=== PATIENT | male | born 1930 ===

== ENCOUNTER 2018-03-12 18:41 | Emergency (ER) | payer MEDICARE, OTHER ==
[2018-03-12] MEDS ORDERED: ATR80PT PO (18:48)
[2018-03-12] MEDS ORDERED: ASPI-1471 PO (18:48)
[2018-03-12] MEDS ORDERED: CAR6.25 PO (18:48)
[2018-03-12] MEDS ORDERED: SAW160CA26 PO (18:49)
--- NOTE | 2018-03-12 18:56 | ER Report ---
History and Physical Time Seen By MD: 18:43 HPI/ROS CHIEF COMPLAINT: Dyspnea, dyspnea on exertion HISTORY OF PRESENT ILLNESS: 87-year-old male from [place]. 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 He flew into [place] and came immediately to [facility] by car. Yesterday he was having some shortness of breath during the judging competition was evaluated by the paramedics at the show, placed him on oxygen, which improved his symptoms. Patient's past medical history significant for CABG, pacemaker, cardiac arrest. Patient's currently on chemotherapy. He has thrombocytopenia. Patient notes no fever or productive cough. Patient's had no chest pain. He thinks he is experiencing altitude sickness. He however denies headache or nausea or vomiting. REVIEW OF SYSTEMS: Respiratory: As above Cardiovascular: No chest pain, no palpitations. Gastrointestinal: No vomiting, no abdominal pain. Musculoskeletal: No back pain. Allergies: Coded Allergies: No Known Drug Allergies (Unverified , 03/12/18) Home Meds Reported Medications [place] (SAW PALMETTO) 160 Mg Capsule, 160 MG PO BID, CAPSULE 03/12/18 Aspirin (ASPIR 81) 81 Mg Tablet.dr, 81 MG PO QDAY, TAB 03/12/18 Atorvastatin (LIPITOR) 80 Mg Tab, 1 TAB PO QDAY, TAB 03/12/18 Carvedilol (CARVEDILOL) 6.25 Mg Tab, 6.25 MG PO BID, TAB 03/12/18 Reviewed Nurses Notes: Yes Old Medical Records Reviewed: Yes Constitutional Vital Sign - Last 24 Hours 03/12/18 03/12/18 03/12/18 03/12/18 18:46 18:50 18:56 19:00 Temp 98.0 Pulse 71 67 Resp 18 31 B/P (MAP) 156/106 (123) 156/106 147/73 (97) Pulse Ox 90 90 O2 Delivery Room Air 03/12/18 03/12/18 03/12/18 03/12/18 19:11 19:26 19:30 19:35 Pulse 68 67 70 Resp 34 30 B/P (MAP) 122/68 (86) Pulse Ox 89 88 94 03/12/18 03/12/18 03/12/18 03/12/18 19:50 19:55 20:25 20:30 Pulse 72 69 69 B/P (MAP) 141/82 (101) Pulse Ox 91 93 92 03/12/18 03/12/18 03/12/18 03/12/18 20:40 20:45 20:50 20:55 Pulse 68 72 73 Pulse Ox 86 88 90 89 03/12/18 03/12/18 03/12/18 03/12/18 21:00 21:05 21:10 21:15 Pulse 71 84 75 72 B/P (MAP) 154/89 (110) Pulse Ox 88 91 88 89 03/12/18 03/12/18 03/12/18 21:20 23:00 23:10 Pulse 71 76 85 Resp 16 B/P (MAP) 136/86 (103) 138/88 (105) Pulse Ox 87 90 92 O2 Delivery Room Air Physical Exam General Appearance: The patient is alert, has no immediate need for airway protection and no current signs of toxicity. Vital signs stable, afebrile, room air pulse ox 90% occasionally dips to 88% HEENT: Pupils equal and round no injection. TMs normal, oropharynx without redness or exudate, mucous. Membranes are moist Respiratory: Chest is non tender, lungs are clear to auscultation. No wheezing or rails Cardiac: regular rate and rhythm, no murmur Gastrointestinal: Abdomen is soft and non tender, no masses, bowel sounds normal. Musculoskeletal: Neck: Neck is supple and non tender. Extremities have full range of motion and are non tender. Skin: No rashes or lesions. DIFFERENTIAL DIAGNOSIS: After history and physical exam differential diagnosis was considered for shortness of breath including but not limited to pulmonary infectious process, COPD, asthma, pulmonary embolus and congestive heart failure. Medical Decision Making Data Points Result Diagram: 03/12/18190803/12/181908 Laboratory Hematology Test 03/12/18 19:09 03/12/18 22:15 Red Blood Count 2.78 M/uL (4.00-5.60) Mean Corpuscular Volume 101.0 fL (80.0-96.0) Mean Corpuscular Hemoglobin 36.1 pg (26.0-33.0) Mean Corpuscular Hemoglobin Concent 35.8 g/dL (32.0-36.0) Red Cell Distribution Width 15.4 % (11.5-14.5) Mean Platelet Volume 8.6 fL (7.2-11.1) Neutrophils (%) (Auto) 60.0 % (39.4-72.5) Lymphocytes (%) (Auto) 26.3 % (17.6-49.6) Monocytes (%) (Auto) 11.2 % (4.1-12.4) Eosinophils (%) (Auto) 1.9 % (0.4-6.7) Basophils (%) (Auto) 0.6 % (0.3-1.4) Nucleated RBC Relative Count (auto) 0.1 /100WBC Neutrophils # (Auto) 2.2 K/uL (2.0-7.4) Lymphocytes # (Auto) 1.0 K/uL (1.3-3.6) Monocytes # (Auto) 0.4 K/uL (0.3-1.0) Eosinophils # (Auto) 0.1 K/uL (0.0-0.5) Basophils # (Auto) 0.0 K/uL (0.0-0.1) Nucleated RBC Absolute Count (auto) 0.00 K/uL Peripheral Blood Smear Yes Y/N D-Dimer Quantitative (PE/DVT) 2.01 ug/ml (0-0.50) Sodium Level 133 mmol/L (137-145) Potassium Level 4.6 mmol/L (3.5-5.0) Chloride Level 100 mmol/L (98-107) Carbon Dioxide Level 21 mmol/L (22-30) Blood Urea Nitrogen 31 mg/dl (9-21) Creatinine 1.20 mg/dl (0.66-1.25) Glomerular Filtration Rate Calc 57.5 Random Glucose 109 mg/dl (75-110) Calcium Level 10.2 mg/dl (8.4-10.2) Total Bilirubin 1.8 mg/dl (0.2-1.3) Aspartate Amino Transf (AST/SGOT) 48 U/L (0-35) Alanine Aminotransferase (ALT/SGPT) 51 U/L (0-56) Alkaline Phosphatase 96 U/L (0-126) B-Type Natriuretic Peptide 589 pg/ml (0-100) Total Protein 6.8 gm/dl (6.3-8.2) Albumin 4.1 g/dl (3.5-5.0) Troponin I 0.042 ng/ml Chemistry Test 03/12/18 19:09 03/12/18 22:15 White Blood Count 3.7 k/uL (4.5-11.0) Red Blood Count 2.78 M/uL (4.00-5.60) Hemoglobin 10.1 g/dL (14.0-18.0) Hematocrit 28.1 % (42.0-52.0) Mean Corpuscular Volume 101.0 fL (80.0-96.0) Mean Corpuscular Hemoglobin 36.1 pg (26.0-33.0) Mean Corpuscular Hemoglobin Concent 35.8 g/dL (32.0-36.0) Red Cell Distribution Width 15.4 % (11.5-14.5) Platelet Count 26 K/uL (150-450) Mean Platelet Volume 8.6 fL (7.2-11.1) Neutrophils (%) (Auto) 60.0 % (39.4-72.5) Lymphocytes (%) (Auto) 26.3 % (17.6-49.6) Monocytes (%) (Auto) 11.2 % (4.1-12.4) Eosinophils (%) (Auto) 1.9 % (0.4-6.7) Basophils (%) (Auto) 0.6 % (0.3-1.4) Nucleated RBC Relative Count (auto) 0.1 /100WBC Neutrophils # (Auto) 2.2 K/uL (2.0-7.4) Lymphocytes # (Auto) 1.0 K/uL (1.3-3.6) Monocytes # (Auto) 0.4 K/uL (0.3-1.0) Eosinophils # (Auto) 0.1 K/uL (0.0-0.5) Basophils # (Auto) 0.0 K/uL (0.0-0.1) Nucleated RBC Absolute Count (auto) 0.00 K/uL Peripheral Blood Smear Yes Y/N D-Dimer Quantitative (PE/DVT) 2.01 ug/ml (0-0.50) Glomerular Filtration Rate Calc 57.5 Calcium Level 10.2 mg/dl (8.4-10.2) Total Bilirubin 1.8 mg/dl (0.2-1.3) Aspartate Amino Transf (AST/SGOT) 48 U/L (0-35) Alanine Aminotransferase (ALT/SGPT) 51 U/L (0-56) Alkaline Phosphatase 96 U/L (0-126) B-Type Natriuretic Peptide 589 pg/ml (0-100) Total Protein 6.8 gm/dl (6.3-8.2) Albumin 4.1 g/dl (3.5-5.0) Troponin I 0.042 ng/ml Coagulation Test 03/12/18 19:09 D-Dimer Quantitative (PE/DVT) 2.01 ug/ml EKG/Imaging EKG Interpretation 12 lead EK Rhythm: normal sinus rhythm [place]: normal QRS: Old inferior Q waves,? Old anterior Q waves ST segments: Diffuse nonspecific ST and T-wave changes, lateral ST depression ?, No old EKGs for comparison Imaging X-ray: Single view portable chest x-ray was obtained. I viewed the images myself on the PACS system. My interpretation of the images is: No infiltrate, no effusion, normal mediastinum, intact pacemaker, median sternotomy wires consistent with CABG. The radiologist interpretation had no clinically significant variation from this interpretation. Results: CT scan of the CTA pulmonary angiogram was obtained. The results of the study are CTA CHEST WW/O CNTR (PULM ANG) HISTORY: Elevated d-dimer. Dyspnea. COMPARISON: Chest x-ray earlier same day. TECHNIQUE: Pulmonary embolus protocol - Thin-slice axial imaging of the chest was performed during maximal pulmonary arterial opacification with intravenous nonionic iodinated contrast. 3D coronal slab MIPs and 2D reconstructions in the coronal and sagittal planes were performed to aid in pulmonary embolus detection. Flexible Machining System Machinist images have been stored on PACS. One of the following dose optimization techniques was utilized in the performance of this exam: Automated exposure control; adjustment of the mA and/ or kV according to the patient's size; or use of an iterative reconstruction technique. Specific details can be referenced in the facility's radiology CT exam operational policy. CONTRAST: 75 mL of IV Isovue-370. FINDINGS: Pulmonary arteries: There is adequate opacification of the pulmonary arteries to the segmental branches. There are no filling defects in the visible pulmonary arteries. Pulmonary arteries are enlarged. Thoracic inlet: Normal. Aorta: The ascending aorta is enlarged, measuring 4.6 x 4.5 cm (sagittal image 157 series 7 and coronal image 106 series 6). There is mild to moderate atherosclerosis of the aorta. Heart / Pericardium: The heart is enlarged. There is artifact from pacemaker leads. There is no ventricular septal deviation. There is no pericardial effusion. There is severe coronary artery calcification. There are changes of coronary artery bypass grafting. Mediastinum / Joanne: Normal mediastinum. No lymphadenopathy. Lungs / Pleura: No pleural effusion. There is scarring at the apices. There is a left upper lobe groundglass opacity (image 36 series 5). No solid component. There is right upper lobe groundglass opacity (image 17 series 5). No solid component. There is 1.4 cm lobular opacity in the peripheral lingula (image 56) . There is a 2.3 cm lobular opacity at the periphery of the left lower lobe on image 55. There is a 4.0 cm lobular opacity at the peripheral right lower lobe on image 88, and there is a smaller irregular opacity anterior to it. There is mild dependent atelectasis. No pneumothorax. The airways are normal. Upper abdomen: There is reflux of contrast into the inferior vena cava. There are cysts of both kidneys. There is severe splenic artery calcification. There is a hepatic cyst in the left lobe of the liver (image 268 series 4), measuring 1.6 cm. Musculoskeletal/vertebra/body wall: There is bilateral gynecomastia. There are sternal closure wires. There are numerous Schmorl nodes. There is mild degenerative change of the spine. No listhesis. There are calcifications in the posterior paraspinal muscles that may be due to old injury. IMPRESSION: 1. No pulmonary embolism. Pulmonary arteries are enlarged, which is nonspecific , but can be seen with pulmonary artery hypertension. 2. Cardiomegaly. In addition, there is reflux of contrast into the inferior vena cava which suggests a degree of right heart failure. 3. Ascending aortic aneurysm measuring 4.6 x 4.5 cm. 4. Groundglass and solid pulmonary opacities. Potentially, this could be on an infectious basis. However, follow-up CT scan is recommended to reevaluate in 3 months as none of these lesions are well seen on chest x-ray. Per the ordering clinician, patient is visiting from out of town and is on chemotherapy for a known malignancy. Potentially, the pulmonary nodules could be metastatic disease. The study was read by the radiologist. I viewed the images myself on the PACS system. ED Course/Re-evaluation Clinical Indication for ER IV: Hydration, IV Access ED Course Patient was admitted to an examination room. H&P was done. Differential diagnosis was considered. Patient with shortness of breath at altitude. [place]. He's not been experiencing any symptoms of altitude sickness such as headache or nausea, vomiting. Patient's been having some dyspnea with exertion. He's had no chest pain. Patient has a history of coronary artery disease and a history of CABG. Patient has a pacemaker AICD in place. Patient had elevated d-dimer, a CT angiogram was performed which showed no evidence of pulmonary embolism. There were some other chronic thinks that were noted. Patient's elevated troponin was in the indeterminate area. Patient had a 3 hour troponin was repeated. The number was going down 0.042. Is still in the lower end of the indeterminate range. 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 He is advised not to exert himself. He is cautioned return to the ER for any chest pain. Patient advised to follow-up with his primary care physician upon returning home. Decision to Disposition Date: March 12, 2018 Decision to Disposition Time: 22:16 Depart Departure Latest Vital Signs Vital Signs Date Time Temp Pulse Resp B/P (MAP) Pulse Ox O2 Delivery O2 Flow Rate FiO2 03/12/18 23:10 85 16 138/88 (105) 92 Room Air 03/12/18 18:50 98.0 Impression: Primary Impression: Dyspnea on exertion Additional Impressions: History of coronary artery disease Thrombocytopenia Elevated troponin I measurement Condition: Improved Disposition: HOME OR SELF-CARE Patient Instructions: Dyspnea (ED) Additional Instructions: Use Benadryl or doxylamine to aid with sleep tonight Follow-up with your primary care doctor upon returning to [place] Avoid exerting yourself. Problem Qualifiers BIMAL SHRESTHA DO March 12, 2018 18:56
[2018-03-12 19:45] LABS: PLATELET COUNT, AUTOMATED 26 K/uL (150-450)
[2018-03-12] MEDS ORDERED: NS(*) 0.9% 1000 ML BAG 1,000 ML IV ONE (19:50)
--- NOTE | 2018-03-12 19:51 | EKG ---
[place] [facility] [place] NAME: BOBY SHAW : [id number] MR: [id number] V: [id number] EXAM DATE: ORDERING PHYSICIAN: BIMAL SHRESTHA TECHNOLOGIST: BRITTNEY Test Reason : DYSPNEA Blood Pressure : / mmHG Vent. Rate : 069 BPM Atrial Rate : 069 BPM P-R Int : 176 ms QRS Dur : 094 ms QT Int : 434 ms P-R-T Axes : 074 023 131 degrees QTc Int : 465 ms Sinus rhythm Possible left atrial enlargement Possible old inferior infarct Poor R wave progression through anterior leads ST changes in limb leads and lateral precordial leads may be ischemic in origin Abnormal ECG No previous ECGs available Confirmed by AMBER SNOWDEN ([id number]) on 03/13/2018 6:11:57 AM Referred By: Confirmed By:AMBER SNOWDEN
[2018-03-12] MEDS ORDERED: NS 0.9% 150 ML BAG 150 ML ONE (20:00)
[2018-03-12] MEDS ORDERED: IOPAMIDOL 76% 75 ML INFUS BTL 75 ML ONE (20:00)
--- NOTE | 2018-03-12 21:27 | RADIOLOGY IMAGING REPORT ---
FACILITY: [facility] PATIENT NAME: Clement Laura : 1930 MR: [id number] V: [id number] EXAM DATE: ORDERING PHYSICIAN: BIMAL SHRESTHA TECHNOLOGIST: Location: [facility] [place] Patient: Clement Laura : 1930 Visit/Account:[id number] Date of Sevice: 03/12/2018 CHEST SINGLE AP 03/12/2018 18:57 hours. HISTORY: Respiratory distress. COMPARISON: None. TECHNIQUE: Portable AP view of the chest. FINDINGS: Tubes/lines/hardware: ICD generator projects at the left lateral lower chest and one lead terminates in the right atrium and 2 leads terminate in the right ventricle. There are sternal closure wires. Th e inferior most is fractured. Pulmonary: There is symmetric apical scarring or thickening. There is no pneumothorax or pleural effu niranjan. Cardiomediastinal: The cardiac silhouette is enlarged, stable. The mediastinal silhouette is within n ormal limits. There is mild aortic calcification. Bones/soft tissues: No acute osseous abnormality. The visible abdomen is normal. IMPRESSION: 1. Cardiomegaly. 2. No acute pulmonary process. Report Dictated By: Rosa Crooks at 03/12/2018 9:21 PM Report E-Signed By: Rosa Crooks at 03/12/2018 9:22 PM WSN:[id number]
--- NOTE | 2018-03-12 21:46 | RADIOLOGY IMAGING REPORT ---
FACILITY: [facility] PATIENT NAME: Clement Laura : 1930 MR: [id number] V: [id number] EXAM DATE: ORDERING PHYSICIAN: BIMAL SHRESTHA TECHNOLOGIST: Location: [facility] [place] Patient: Clement Laura : 1930 Visit/Account:[id number] Date of Sevice: 03/12/2018 CTA CHEST WW/O CNTR (PULM ANG) HISTORY: Elevated d-dimer. Dyspnea. COMPARISON: Chest x-ray earlier same day. TECHNIQUE: Pulmonary embolus protocol - Thin-slice axial imaging of the chest was performed during ma ximal pulmonary arterial opacification with intravenous nonionic iodinated contrast. 3D coronal slab MIPs and 2D reconstructions in the coronal and sagittal planes were performed to aid in pulmonary emb olus detection. Spring Floor Service Worker images have been stored on PACS. One of the following dose optimization techniques was utilized in the performance of this exam: Autom ated exposure control; adjustment of the mA and/or kV according to the patient's size; or use of an i terative reconstruction technique. Specific details can be referenced in the facility's radiology CT exam operational policy. CONTRAST: 75 mL of IV Isovue-370. FINDINGS: Pulmonary arteries: There is adequate opacification of the pulmonary arteries to the segmental branch es. There are no filling defects in the visible pulmonary arteries. Pulmonary arteries are enlarged. Thoracic inlet: Normal. Aorta: The ascending aorta is enlarged, measuring 4.6 x 4.5 cm (sagittal image 157 series 7 and coron al image 106 series 6). There is mild to moderate atherosclerosis of the aorta. Heart / Pericardium: The heart is enlarged. There is artifact from pacemaker leads. There is no ventr icular septal deviation. There is no pericardial effusion. There is severe coronary artery calcificat ion. There are changes of coronary artery bypass grafting. Mediastinum / Joanne: Normal mediastinum. No lymphadenopathy. Lungs / Pleura: No pleural effusion. There is scarring at the apices. There is a left upper lobe farzana undglass opacity (image 36 series 5). No solid component. There is right upper lobe groundglass opaci ty (image 17 series 5). No solid component. There is 1.4 cm lobular opacity in the peripheral lingula (image 56). There is a 2.3 cm lobular opacity at the periphery of the left lower lobe on image 55. T here is a 4.0 cm lobular opacity at the peripheral right lower lobe on image 88, and there is a small er irregular opacity anterior to it. There is mild dependent atelectasis. No pneumothorax. The airway s are normal. Upper abdomen: There is reflux of contrast into the inferior vena cava. There are cysts of both kidne ys. There is severe splenic artery calcification. There is a hepatic cyst in the left lobe of the vanessa er (image 268 series 4), measuring 1.6 cm. Musculoskeletal/vertebra/body wall: There is bilateral gynecomastia. There are sternal closure wires. There are numerous Schmorl nodes. There is mild degenerative change of the spine. No listhesis. Ther e are calcifications in the posterior paraspinal muscles that may be due to old injury. IMPRESSION: 1. No pulmonary embolism. Pulmonary arteries are enlarged, which is nonspecific, but can be seen with pulmonary artery hypertension. 2. Cardiomegaly. In addition, there is reflux of contrast into the inferior vena cava which suggests a degree of right heart failure. 3. Ascending aortic aneurysm measuring 4.6 x 4.5 cm. 4. Groundglass and solid pulmonary opacities. Potentially, this could be on an infectious basis. Montalvo bianca, follow-up CT scan is recommended to reevaluate in 3 months as none of these lesions are well see n on chest x-ray. Per the ordering clinician, patient is visiting from out of town and is on chemothe rapy for a known malignancy. Potentially, the pulmonary nodules could be metastatic disease. These findings were discussed by phone with BIMAL SHRESTHA on 03/12/2018 9:40 PM. Report Dictated By: Rosa Crooks at 03/12/2018 9:27 PM Report E-Signed By: Rosa Crooks at 03/12/2018 9:42 PM WSN:[id number]
[2018-03-12] MEDS ORDERED: ASPIRIN 81 MG CHEW PO ONE (23:00)
[2018-03-12] MEDS ORDERED: diphenhydrAMINE 25 MG CAP PO ONE (23:00)
[2018-03-12 23:10] VITALS: BP 138/88
== END 2018-03-12 23:09 | disposition home or self-care (01) ==
LOC: ER 19:03
DX: D69.6 Thrombocytopenia, unspecified (principal); R79.89 Other specified abnormal findings of blood chemistry; I25.810 Atherosclerosis of coronary artery bypass graft(s) without angina pectoris
CPT/HCPCS: 36415; 71045; 71275; 83880; 84484; 85025; 85379; 93005; 96360; 96361; 99284; A9270; J7030; Q0163; Q9967; 82040; 82247; 82310; 82374; 82435; 82565; 82947; 84075; 84132; 84155; 84295; 84450; 84460; 84520